=== PATIENT | female | born 1930 | race Caucasian/White ===

== ENCOUNTER → 2017-07-30 | Outpatient (CLI) | payer OTHER ==
[2017-07-30 11:06] LABS: BASO % 0.8 %; BASO ABS # 0.03 K/uL (0-0.2); EOS % 4.9 %; EOS ABS # 0.19 K/uL (0-0.5); HEMATOCRIT 39.7 % (37-47); IG# 0.01 K/uL (0.00-0.02); LYMPH % 19.5 %; LYMPH ABS # 0.76 K/uL (1.2-3.4); MEAN CELL VOLUME 94.5 fL (80-100); MEAN CORPUSCULAR HGB CONC 32.7 g/dl (32-36); MEAN PLATELET VOLUME 9.2 fL (7.4-10.4); MONO % 11.8 %; MONO ABS # 0.46 K/uL (0.11-0.59); NEUT % 62.7 %; NEUT ABS # 2.45 K/uL (1.4-6.5); PLATELET COUNT 190 K/uL (130-400); RED CELL DISTRIBUTION WIDTH CV 13.3 % (11.5-14.5); RED CELL DISTRIBUTION WIDTH SD 46.1 fL (36.4-46.3)
[2017-07-30 11:32] LABS: ALBUMIN 3.8 gm/dl (3.4-5.0); ALT/SGPT 16 U/L (12-78); BLOOD UREA NITROGEN 16 mg/dl (7-18); CALCIUM 9.4 mg/dl (8.5-10.1); CARBON DIOXIDE 30 mmol/L (21-32); CHOLESTEROL 223 mg/dl (0-200); CREATININE 0.81 mg/dl (0.60-1.20); GLUCOSE 83 mg/dl (70-99); LIPASE 163 U/L (73-393); POTASSIUM 4.2 mmol/L (3.5-5.1); SODIUM 138 mmol/L (136-145)
[2017-07-30 11:43] LABS: ALKALINE PHOSPHATASE 62 U/L (45-117); AST/SGOT 16 U/L (15-37); LDL CHOLESTEROL CALCULATED 142 mg/dl
== END | disposition home or self-care (01) ==
LOC: C.LABBC 08:54
PROVIDERS: ATTEND Nurse Practitioner Adult Health
DX: E03.9 Hypothyroidism, unspecified (principal); M81.0 Age-related osteoporosis without current pathological fracture; E78.5 Hyperlipidemia, unspecified; R10.11 Right upper quadrant pain

== ENCOUNTER 2021-05-25 11:15 | Observation (INO) ==
--- NOTE | 2021-05-25 11:25 | Emergency Department Note ---
History of Present Illness General Chief complaint: Fall Stated complaint: FALL, L HIP PAIN History of Present Illness 89-year-old female presents to the ED with a chief complaint of a fall. The patient was brought in by ambulance. She states that she slipped on the ice and fell onto her left hip and buttock area. She states that she has a significant mount of pain with trying to bear weight. She also has pain with certain movements. There is no shortening or rotation of the leg. Denies striking her head or loss of consciousness. Denies any other areas of pain such as her back, neck, chest abdomen or other parts of the extremities. Home Medications Medication Instructions Recorded Confirmed Type cholecalciferol (vitamin D3) 50 2,000 units PO DAILY cap 01/15/19 03/15/21 History mcg (2,000 unit) capsule glucosamine 750 mg-MSM 60 1 tab PO DAILY tab 01/15/19 03/15/21 History mg-chondroit 150 mg-hyaluron ac 1 mg tablet guaifenesin 1,200 mg tablet, 1,200 mg PO ONCE PRN tab 01/20/19 03/15/21 History extended release 12 hr (Mucinex) loratadine 10 mg tablet (Claritin) 10 mg PO DAILY PRN 01/20/19 03/15/21 History ibuprofen 200 mg tablet 400 mg PO DAILY PRN tab 10/01/19 03/15/21 History levothyroxine 50 mcg tablet 50 mcg PO DAILY #90 tab 08/25/20 03/15/21 Rx Allergies Allergy/AdvReac Type Severity Reaction Status Date / Time bacitracin AdvReac RASH Verified 03/15/21 09:55 [From Neosporin ([id number])] neomycin AdvReac Rash Verified 03/15/21 09:55 [From Neosporin ([id number])] polymyxin B AdvReac RASH Verified 03/15/21 09:55 [From Neosporin ([id number])] Past Med/Surg History Medical History Allergic rhinitis Arthritis Bilateral primary osteoarthritis of knee Hyperlipidemia Hypothyroidism Mitral valve disorder Osteoporosis Psoriasis Surgical History H/O: hysterectomy Family History Father Stroke Other Heart disease Denies family history of Ovarian cancer Prostate cancer Myocardial infarction Breast cancer Colorectal cancer Social History Smoking Status: Never smoker Second Hand Exposure: No; Hx Alcohol Use: Yes (glass of wine once a month) Alcohol type: wine Alcohol Intake Frequency: Monthly or Less Hx Substance Use: No Preferred Language: Micronesian Visual Impairment: Limited Hearing Ability: Hard of Hearing Patient Services Coordinator Required: No marital status: / Current Living Situation: Family current occupational status: retired How many Children do You have: 0 Feels Safe at Home: Yes Childhood Exposure to Second-Hand Smoke: No caffeine: Yes Dental Care, Regularly: Yes Physical Activity Frequency: Does not Exercise Seatbelt Use: always Sunscreen Use: No Review of Systems A total of 10 systems reviewed and were otherwise negative Physical Exam Vital Signs Vital Signs - 24 hr 05/25/21 11:26 Temperature 36.8 C Temperature Source Oral Pulse Rate 71 Respiratory Rate 15 Respiratory Effort / Characteristics Non-Labored Respiratory Depth Normal Blood Pressure 149/98 H Blood Pressure Mean 115 Pulse Oximetry 95 Oxygen Delivery Method Room Air Sepsis Recent Fever Within 48 Hours No Sepsis New/Unexplained Change in Mental Status No Sepsis Action Taken by Nursing No Action Required CONSTITUTIONAL/VITAL SIGNS: Reviewed / noted above. GENERAL: Non-toxic in appearance. INTEGUMENTARY: Warm, dry, and [place]. HEAD: Normocephalic. EYES: without scleral icterus or trauma. ENT/OROPHARYNX: clear and moist. LYMPHADENOPATHY/NECK: Is supple without lymphadenopathy or meningismus. RESPIRATORY: Clear to auscultation bilaterally. No increased work of breathing. CARDIOVASCULAR: Regular rate and rhythm. GI/ABDOMEN: Soft and nontender. No organomegaly or pulsatile mass. EXTREMITIES: Warm and well perfused. The patient has discomfort in the left buttock area with movement. There is no external or internal rotation. No shortening. Good distal pulses. BACK: No CVA tenderness. NEUROLOGICAL: Intact without focal deficits. PSYCHIATRIC: normal affect. MUSCULOSKELETAL: Normally developed with good muscle tone. TRIAGE NURSING DOCUMENTATION REVIEWED. Course Administered Medications Discontinued Medications Ioversol (Optiray 320 100ml) 95 ml IV ONCE ONE Stop: 05/25/21 13:37 Last Admin: 05/25/21 13:36 Dose: 95 ml Documented by: [id number] Morphine Sulfate (Morphine Sulfate 2 Mg/Ml Carp) 2 mg IV NOW STA Stop: 05/25/21 13:13 Last Admin: 05/25/21 13:28 Dose: 2 mg Documented by: [id number] Medical Decision Making Differential Diagnosis Fracture, subluxation, dislocation, contusion, ligamentous injury, neurovascular, compartment syndrome, rhabdomyolysis, as well as other pathologies. Medical Records Attestation: I reviewed the patient's medical records. Home Medications Current Medication List: was personally reviewed by me Laboratory Data Lab Results 05/25/21 Range/Units 12:39 POC Hgb 12.2 (12.0-16.0) g/dl POC Hct 36 L (37-47) % POC Sodium 140 (135-144) mmol/L POC Potassium 4.0 (3.3-5.0) mmol/L POC Chloride 101 (101-112) mmol/L POC Total CO2 28 (24-31) mmol/L POC Anion Gap 16.0 (16-25) mmol/L POC BUN 10 (7-18) mg/dl POC Creatinine 0.8 (0.6-1.3) mg/dl POC Glucose (other) 95 (70-99) mg/dl POC Ioniz Calcium Shahbaz 1.33 H (1.12-1.32) mmol/l Imaging Data Radiologist's Impression: Hip/Pelvis X-Ray 05/25/21 11:22 XR hip LT 2V w pelvis CLINICAL HISTORY: fall, pain left buttock area TECHNIQUE: 2 views of the left hip and single frontal view of the pelvis were obtained. Comparison: None available at the time of this dictation. FINDINGS: There is no evidence of an acute fracture. The alignment is anatomic. Degenerative changes are seen in the hip joint. Vascular calcifications are noted. IMPRESSION: Degenerative changes without evidence of acute abnormality. ACT 112: Negative or not required by law. Electronically signed by: Vinod Calles M.D. 05/25/2021 12:[address] 05/25/21 12:06 CT pelvis w/IV con only CLINICAL HISTORY: left sup/inf pubic ramus fx TECHNIQUE: Helical axial images of the pelvis were obtained and displayed at 5 and 1 mm intervals. Automated dose lowering techniques and/or adjustment according to patient size were utilized for this exam. This exam was performed with intravenous contrast. COMPARISON: None available at the time of this dictation. FINDINGS: Bladder: Unremarkable. Reproductive organs: Unremarkable. Bowel: Diverticulosis is seen without evidence of diverticulitis. Lymph nodes Mesenteric: Unremarkable. Pelvic: Unremarkable. Peritoneum: Normal Vessels: Atherosclerotic calcifications are seen. Abdominal wall: A tiny umbilical helical hernia is seen. Bones: Comminuted fractures of the superior left pubic ramus and minimally displaced fracture of the left inferior pubic ramus. IMPRESSION: Fractures of the left superior-inferior pubic ramus. ACT 112: Negative or not required by law. Electronically signed by: Vinod Calles M.D. 05/25/2021 2:01 PM MDM Narrative 89-year-old female presents with complaint of left buttock pain after a fall. The patient CT scan shows a left superior and inferior pubic ramus fracture. Because the patient has significant difficulty with moving the leg at all, she will require further inpatient evaluation and care and placement for rehab. I did speak with the hospitalist about this. The patient was treated with IV morphine. Impression & Plan Fracture of left inferior pubic ramus, Closed fracture of left superior pubic ramus, Fall Discharge Plan Visit Data Chief Complaint: Fall Stated Complaint: FALL, L HIP PAIN ED Provider: Omar Pereira Discharge Problem: Fracture of left inferior pubic ramus, Closed fracture of left superior pubic ramus, Fall Patient Disposition: Being Evaluated by Hospitalist Forms Stand Alone Forms: [facility], Virtual Emergency Department, Important Visit Information Prescriptions Prescriptions: No Action levothyroxine 50 mcg tablet 50 mcg PO DAILY Qty: 90 RF: 3 eorlscgj-BHI-yabgx-hyaluron ac [id number] mg tablet 1 tab PO DAILY RF: 0 cholecalciferol (vitamin D3) 2,000 unit capsule 2,000 units PO DAILY RF: 0 loratadine [Claritin] 10 mg tablet 10 mg PO DAILY PRNRF: 0 guaifenesin [Mucinex] 1,200 mg tablet extended release 12hr 1,200 mg PO ONCE PRNRF: 0 ibuprofen 200 mg tablet 400 mg PO DAILY PRN (Reason: fever or pain) RF: 0 Referrals Referrals: Jose Posada, [Primary Care Provider] - Discharge Problem: Fracture of left inferior pubic ramus Qualifiers: Encounter type: initial encounter Fracture type: closed Qualified Code(s): S32.592A - Other specified fracture of left pubis, initial encounter for closed fracture Closed fracture of left superior pubic ramus Qualifiers: Encounter type: initial encounter Qualified Code(s): S32.512A - Fracture of superior rim of left pubis, initial encounter for closed fracture
--- NOTE | 2021-05-25 12:15 | XRay Report ---
XR hip LT 2V w pelvis CLINICAL HISTORY: fall, pain left buttock area TECHNIQUE: 2 views of the left hip and single frontal view of the pelvis were obtained. Comparison: None available at the time of this dictation. FINDINGS: There is no evidence of an acute fracture. The alignment is anatomic. Degenerative changes are seen i n the hip joint. Vascular calcifications are noted. IMPRESSION: Degenerative changes without evidence of acute abnormality. ACT 112: Negative or not required by law. Electronically signed by: Vinod Calles M.D. 05/25/2021 12:13 PM
[2021-05-25 12:51] LABS: iSTAT Creatinine 0.8 mg/dl (0.6-1.3); iSTAT Hemoglobin 12.2 g/dl (12.0-16.0); iSTAT Ionized Calcium 1.33 mmol/l (1.12-1.32)
[2021-05-25] MEDS ORDERED: MoRPHine SULFATE 2 MG/ML CARP IV STA ×2 (13:12→15:51)
[2021-05-25] MEDS ORDERED: OPTIRAY 320 100ml IV ONE (13:36)
--- NOTE | 2021-05-25 14:02 | CT Scan Report ---
CT pelvis w/IV con only CLINICAL HISTORY: left sup/inf pubic ramus fx TECHNIQUE: Helical axial images of the pelvis were obtained and displayed at 5 and 1 mm intervals. Au tomated dose lowering techniques and/or adjustment according to patient size were utilized for this e xam. This exam was performed with intravenous contrast. COMPARISON: None available at the time of this dictation. FINDINGS: Bladder: Unremarkable. Reproductive organs: Unremarkable. Bowel: Diverticulosis is seen without evidence of diverticulitis. Lymph nodes Mesenteric: Unremarkable. Pelvic: Unremarkable. Peritoneum: Normal Vessels: Atherosclerotic calcifications are seen. Abdominal wall: A tiny umbilical helical hernia is seen. Bones: Comminuted fractures of the superior left pubic ramus and minimally displaced fracture of the left inferior pubic ramus. IMPRESSION: Fractures of the left superior-inferior pubic ramus. ACT 112: Negative or not required by law. Electronically signed by: Vinod Calles M.D. 05/25/2021 2:01 PM
--- NOTE | 2021-05-25 14:34 | History & Physical Report ---
Date of Service May 25, 2021 Assessment & Plan (1) Fracture of left inferior pubic ramus: Plan: Mechanical fall in a 89 yo female with above diagnosis Patient will be admitted for pain control. Consult PT/OT Patient will likely benefir from acute rehab given how she is normally active and is able to ambulate without a walker. Patient will be on pain medicine: acetaminophen/ NSAID. This is nonsurgical. May curbside Dr. Phan for any further recommendations. (2) Closed fracture of left superior pubic ramus: Plan: as above (3) Fall: Plan: s/p fall as stated above (4) Hypothyroidism: Plan: resume home meds History of Present Illness Chief Complaint: fall Primary Care Provider: Jose Posada DO Patient is 89 yo female who sustained a mechanical fall while slipping on ice. She fell on the lateral side of her left pelvis. Patient was in a significant amount of pain and was unable to ambulate or bear weight. She denies hitting her head or having loss of consciousness. Allergies Allergy/AdvReac Type Severity Reaction Status Date / Time bacitracin AdvReac RASH Verified 05/25/21 14:34 [From Neosporin ([id number])] neomycin AdvReac Rash Verified 05/25/21 14:34 [From Neosporin ([id number])] polymyxin B AdvReac RASH Verified 05/25/21 14:34 [From Neosporin ([id number])] Home Medications Medication Instructions Recorded Confirmed Type cholecalciferol (vitamin D3) 50 2,000 units PO QAM cap 01/15/19 05/25/21 History mcg (2,000 unit) capsule glucosamine 750 mg-MSM 60 1 tab PO QAM tab 01/15/19 05/25/21 History mg-chondroit 150 mg-hyaluron ac 1 mg tablet guaifenesin 1,200 mg tablet, 1,200 mg PO ONCE PRN tab 01/20/19 05/25/21 History extended release 12 hr (Mucinex) loratadine 10 mg tablet (Claritin) 10 mg PO DAILY PRN 01/20/19 05/25/21 History ibuprofen 200 mg tablet 400 mg PO DAILY PRN tab 10/01/19 05/25/21 History levothyroxine 50 mcg tablet 50 mcg PO DAILY #90 tab 08/25/20 05/25/21 Rx Past Med/Surg History Medical History Allergic rhinitis Arthritis Bilateral primary osteoarthritis of knee Hyperlipidemia Hypothyroidism Mitral valve disorder Osteoporosis Psoriasis Surgical History H/O: hysterectomy Family History Father Stroke Other Heart disease Denies family history of Ovarian cancer Prostate cancer Myocardial infarction Breast cancer Colorectal cancer Social History Smoking Status: Never smoker Second Hand Exposure: No; Do You Dip or Chew Tobacco: No; Tobacco Cessation Education Requested by Patient: No Hx Alcohol Use: Yes Alcohol type: wine Alcohol Intake Frequency: Monthly or Less Hx Substance Use: No Preferred Language: Hungarian Communication Ability: Effective Visual Impairment: Limited Hearing Ability: Hard of Hearing Bookkeeping Assistant Required: No Beliefs That Will Affect Care: None marital status: Single Current Living Situation: Family current occupational status: retired How many Children do You have: 0 Other Information That Helps Us Care for You: No Feels Safe at Home: Yes Safety Concerns: Feels Safe At This Time Childhood Exposure to Second-Hand Smoke: No caffeine: Yes Dental Care, Regularly: Yes Physical Activity Frequency: Does not Exercise Seatbelt Use: always Sunscreen Use: No Assistive Devices: Cane, Glasses and Walker Assistive Devices Comment: Glasses for reading. Review of Systems Review of Systems: All systems reviewed & are unremarkable except as noted in HPI & below Physical Exam Constitutional: WD/WN, vitals as above Eyes: PERRL, conjunctivae normal, anicteric sclerae ENMT: external ear and nose normal, oropharynx normal Neck: trachea midline, no thyromegaly Respiratory: normal respiratory effort, lungs clear to auscultation Cardiovascular: RRR, no murmur, no edema Gastrointestinal (Abdomen): normal bowel sounds, soft, nontender, no hepatosplenomegaly Skin: no rashes, warm and dry Psychiatric: A+Ox3, euthymic affect Lymphatic: no cervical or axillary lymphadenopathy Results & Data Results & Data ([facility]) Vital Signs (Past 12 Hours) Vital Signs Temp Pulse Pulse Resp BP BP Pulse Ox 05/25/21 13:13 61 15 167/85 H 95 05/25/21 11:26 36.8 C 71 15 149/98 H 95 PG Care Time/CCT Total # of Minutes Spent Total Time Spent with Patient: Total time spent is greater than 50% in coordination of care (as documented) at patient's floor/unit and/or counseling patient: Coding Level of Care Code 35916 Initial Inpt Care Lvl 3 Diagnoses Fracture of left inferior pubic ramus S32.592A Encounter type: initial encounter Fracture type: closed Closed fracture of left superior pubic ramus S32.512A Encounter type: initial encounter Fall W19.XXXA Hypothyroidism E03.9 (1) Fracture of left inferior pubic ramus Encounter type: initial encounter Fracture type: closed Qualified Code(s): S32.592A - Other specified fracture of left pubis, initial encounter for closed fracture (2) Closed fracture of left superior pubic ramus Encounter type: initial encounter Qualified Code(s): S32.512A - Fracture of superior rim of left pubis, initial encounter for closed fracture
[2021-05-25] MEDS ORDERED: ACETAMINOPHEN 325 MG TAB PO PRN (16:39)
[2021-05-25] MEDS ORDERED: guaiFENesin 600 MG TABCR PO PRN (17:08)
[2021-05-25] MEDS: ACETAMINOPHEN 325 MG TAB PO SCH (17:34)
[2021-05-25] MEDS: DOCUSATE SODIUM/SENNA 50/8.6MG TAB PO SCH (17:35)
[2021-05-25] MEDS: IBUPROFEN 200 MG TAB PO SCH ×2 (19:00→22:38)
[2021-05-25] MEDS: ENOXAPARIN INJ 40 MG/0.4 ML SYR SQ SCH (22:39)
[2021-05-26] MEDS: ACETAMINOPHEN 325 MG TAB PO SCH ×5 (02:23→23:53)
[2021-05-26] MEDS: LEVOTHYROXINE SODIUM 50 MCG TABLET PO SCH (05:23)
[2021-05-26] MEDS: DOCUSATE SODIUM/SENNA 50/8.6MG TAB PO SCH (07:34)
[2021-05-26] MEDS: POLYETHYLENE (MIRALAX) 17 GM PACK PO SCH (07:35)
[2021-05-26] MEDS: CHOLECALCIFEROL 1,000 UNITS 25 MCG TAB PO SCH (07:35)
[2021-05-26] MEDS: IBUPROFEN 200 MG TAB PO SCH ×4 (07:36→20:57)
--- NOTE | 2021-05-26 08:39 | Hospitalist Progress Note ---
Date of Service May 26, 2021 Assessment & Plan (1) Fracture of left inferior pubic ramus: Plan: Mechanical fall in a 89 yo female with above diagnosis Pt prefers ibuprofen to tylenol and prn opiates for pain control. Consult PT/OT Patient will likely benefit from rehab given how she is normally active and is able to ambulate without a walker. (2) Closed fracture of left superior pubic ramus: (3) Fall: (4) Hypothyroidism: Plan: synthroid 50 mcg, last tsh was 2019, will recheck in am Admission and Anticipated Discharge Date Admission Date: May 25, 2021 Subjective Patient has reasonable control of her pain worse with changes in position. Obviously she will need likely subacute rehab for therapy while she recovers from her pelvic fracture Review of Systems Review of Systems: Mild distress and fatigue no headache, no visual changes no speech or swallowing issues no chest pain, pressure or palpitations no shortness of breath, cough or wheezes no abdominal pain, nausea or vomiting, diarrhea or constipation no dysuria, hematuria or frequency no focal joint pain or swelling left sided pelvic pain with movement no bruising, bleeding or rashes no focal signs of weakness or numbness or altered sensation no complaints of anxiety or depression.. Physical Exam Physical Exam: The patient appeared well nourished and normally developed. Vital signs as documented. Head exam is normocephalic atraumatic Neck is without JVD, thyromegaly, or carotid bruits. Lungs are clear to auscultation, no focal loss of breath sounds Cardiac exam, Rhythm is regular.. No murmurs, rubs or gallops. Abdominal exam reveals normal bowel sounds, soft non tender, no masses Extremities are nonedematous and both pedal pulses are present she has reproducable left sided pain with movement Neurologic exam is alert and oriented, no focal loss of strength or sensation Skin is without bruises or rashes Psychologically is without concerns for anxiety or depression.. Results & Data Results & Data ([facility]) Vital Signs (Past 12 Hours) Vital Signs Temp Pulse Pulse Resp BP BP Pulse Ox 05/26/21 07:11 98.1 F 63 16 146/82 H 93 05/25/21 22:10 97.9 F 63 14 174/73 H 93 05/25/21 21:39 63 14 148/71 H 95 05/25/21 21:00 67 13 151/73 H 94 PG Care Time/CCT Total # of Minutes Spent Total Time Spent with Patient: Total time spent is greater than 50% in coordination of care (as documented) at patient's floor/unit and/or counseling patient: Coding Level of Care Code 50225 Subseq Hosp Care Lvl 1 Diagnoses Fracture of left inferior pubic ramus S32.592A Encounter type: initial encounter Fracture type: closed Closed fracture of left superior pubic ramus S32.512A Encounter type: initial encounter Fall W19.XXXA Hypothyroidism E03.9 (1) Fracture of left inferior pubic ramus Encounter type: initial encounter Fracture type: closed Qualified Code(s): S32.592A - Other specified fracture of left pubis, initial encounter for closed fracture (2) Closed fracture of left superior pubic ramus Encounter type: initial encounter Qualified Code(s): S32.512A - Fracture of superior rim of left pubis, initial encounter for closed fracture
[2021-05-26] MEDS: ENOXAPARIN INJ 40 MG/0.4 ML SYR SQ SCH (20:56)
[2021-05-27] MEDS: oxyCODONE HCL IR 5 MG TAB (IMMEDIATE RELEASE) PO PRN (01:55)
[2021-05-27] MEDS: LEVOTHYROXINE SODIUM 50 MCG TABLET PO SCH (05:42)
[2021-05-27] MEDS: ACETAMINOPHEN 325 MG TAB PO SCH ×4 (05:42→22:56)
[2021-05-27] MEDS: DOCUSATE SODIUM/SENNA 50/8.6MG TAB PO SCH (07:25)
[2021-05-27] MEDS: POLYETHYLENE (MIRALAX) 17 GM PACK PO SCH (07:25)
[2021-05-27] MEDS: IBUPROFEN 200 MG TAB PO SCH ×4 (07:29→21:19)
[2021-05-27] MEDS: CHOLECALCIFEROL 1,000 UNITS 25 MCG TAB PO SCH (07:30)
--- NOTE | 2021-05-27 17:57 | Hospitalist Progress Note ---
Date of Service May 27, 2021 Assessment & Plan (1) Fracture of left inferior pubic ramus: Plan: Mechanical fall, left inferior pubic ramus fracture Nonsurgical management Pending rehab, patient is agreeable to this Continue Tylenol Pending placement at this time, clinically stable Pain adequately controlled today (2) Closed fracture of left superior pubic ramus: (3) Fall: (4) Hyperlipidemia: Plan: resume home meds (5) Hypothyroidism: Plan: resume home meds Plan: DVT prophylaxis: Lovenox Diet: Regular CODE STATUS: DNR/DNI Disposition: Pending rehab Admission and Anticipated Discharge Date Admission Date: May 25, 2021 Subjective Seen at bedside. No pain at rest. Does have left-sided hip pain with ambulation, but is able to ambulate okay with a walker. She notes that she lives on a single floor home, but does have carpets and is concerned about ambulating at home with a walker. He is agreeable to rehab, is pending placement. No chest pain, chest pressure, shortness of breath, difficulty breathing, fever, chills, abdominal pain today. No additional questions or concerns at time of bedside visit. Review of Systems Review of Systems: All systems reviewed & are unremarkable except as noted in Subjective Physical Exam Physical Exam: General: A&Ox3. NAD. Cooperative. HEENT: Atraumatic, normocephalic. Vision and hearing grossly intact. Pulm: Moderate to good air movement, no overt wheezes/rales. Symmetrical chest rise. No increase in work of breathing. No respiratory distress. Cardiac: RRR, -mrg. Radial pulses intact and symmetrical. Abdominal: Nontender, nondistended, soft. BS present. Extremities: Moves all extremities equally. Sensation to soft touch intact in hands and feet. 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 Hip flexion intact and symmetrical bilaterally, some pain on left resisted hip flexion. Radial pulse and PT pulse intact bilaterally. Results & Data Results & Data ([facility]) Vital Signs (Past 12 Hours) Vital Signs Temp Pulse Resp BP BP Pulse Ox 05/27/21 15:30 36.7 C 66 16 153/73 H 93 05/27/21 07:30 36.7 C 72 18 145/74 H 92 PG Care Time/CCT Total # of Minutes Spent Total Time Spent with Patient: Total time spent is greater than 50% in coordination of care (as documented) at patient's floor/unit and/or counseling patient: Coding Level of Care Code 55227 Subseq Hosp Care Lvl 1 Diagnoses Fracture of left inferior pubic ramus S32.592A Encounter type: initial encounter Fracture type: closed Closed fracture of left superior pubic ramus S32.512A Encounter type: initial encounter Fall W19.XXXA Hyperlipidemia E78.5 Hypothyroidism E03.9 (1) Fracture of left inferior pubic ramus Encounter type: initial encounter Fracture type: closed Qualified Code(s): S32.592A - Other specified fracture of left pubis, initial encounter for closed fracture (2) Closed fracture of left superior pubic ramus Encounter type: initial encounter Qualified Code(s): S32.512A - Fracture of superior rim of left pubis, initial encounter for closed fracture
[2021-05-27] MEDS: ENOXAPARIN INJ 40 MG/0.4 ML SYR SQ SCH (21:19)
[2021-05-28] MEDS: oxyCODONE HCL IR 5 MG TAB (IMMEDIATE RELEASE) PO PRN (04:40)
[2021-05-28] MEDS: LEVOTHYROXINE SODIUM 50 MCG TABLET PO SCH (05:09)
[2021-05-28] MEDS: ACETAMINOPHEN 325 MG TAB PO SCH ×4 (05:09→23:52)
[2021-05-28] MEDS: CHOLECALCIFEROL 1,000 UNITS 25 MCG TAB PO SCH (08:19)
[2021-05-28] MEDS: POLYETHYLENE (MIRALAX) 17 GM PACK PO SCH (08:20)
[2021-05-28] MEDS: DOCUSATE SODIUM/SENNA 50/8.6MG TAB PO SCH (08:20)
[2021-05-28] MEDS: IBUPROFEN 200 MG TAB PO SCH ×4 (08:21→21:27)
--- NOTE | 2021-05-28 17:45 | Hospitalist Progress Note ---
Date of Service May 28, 2021 Assessment & Plan (1) Fracture of left inferior pubic ramus: Plan: Admitting CT:Fractures of the left superior-inferior pubic ramus. -Pain control adequate at this time -Continue working with PT OT, pending discharge to rehab -Continue Tylenol as needed -Nonsurgical management -May curbside Dr. Phan for any further recommendations. -Labs every other day (2) Closed fracture of left superior pubic ramus: Plan: as above (3) Fall: Plan: s/p fall as stated above (4) Hypothyroidism: Plan: Continue home Synthroid Admission and Anticipated Discharge Date Admission Date: May 25, 2021 Subjective Ambulating to bathroom at time of visit. Doing well, continues to have some pain in hip with ambulation otherwise minimal pain and no new symptoms. No fever/chills/sweats. No chest pain. Awaiting dispo, no questions or concerns at time of visit. Review of Systems Review of Systems: All systems reviewed & are unremarkable except as noted in Subjective Physical Exam Physical Exam: General: A&Ox3. NAD. Cooperative. HEENT: Atraumatic, normocephalic. Vision and hearing grossly intact. Pulm: Symmetrical chest rise. No increase in work of breathing. No respiratory distress. Abdominal: Nontender, nondistended, soft. BS present. Extremities: Moves all extremities equally. Ambulating with walker to bathroom at time of visit, hip flexion and lower extremity strength grossly intact. Moving upper extremities equally and using walker well. Sensation in hands and feet intact. Results & Data Results & Data ([facility]) Vital Signs (Past 12 Hours) Vital Signs Temp Pulse Resp BP Pulse Ox 05/28/21 15:48 37.0 C 77 16 127/75 95 05/28/21 08:02 36.4 C L 61 16 143/77 H 94 PG Care Time/CCT Total # of Minutes Spent Total Time Spent with Patient: Total time spent is greater than 50% in coordination of care (as documented) at patient's floor/unit and/or counseling patient: Coding Level of Care Code 43712 Subseq Hosp Care Lvl 1 Diagnoses Fracture of left inferior pubic ramus S32.592A Encounter type: initial encounter Fracture type: closed Closed fracture of left superior pubic ramus S32.512A Encounter type: initial encounter Fall W19.XXXA Hypothyroidism E03.9 (1) Fracture of left inferior pubic ramus Encounter type: initial encounter Fracture type: closed Qualified Code(s): S32.592A - Other specified fracture of left pubis, initial encounter for closed fracture (2) Closed fracture of left superior pubic ramus Encounter type: initial encounter Qualified Code(s): S32.512A - Fracture of superior rim of left pubis, initial encounter for closed fracture
[2021-05-28] MEDS: ENOXAPARIN INJ 40 MG/0.4 ML SYR SQ SCH (21:24)
[2021-05-29] MEDS: LEVOTHYROXINE SODIUM 50 MCG TABLET PO SCH (05:30)
[2021-05-29] MEDS: oxyCODONE HCL IR 5 MG TAB (IMMEDIATE RELEASE) PO PRN (05:30)
[2021-05-29] MEDS: ACETAMINOPHEN 325 MG TAB PO SCH ×4 (05:30→23:50)
[2021-05-29 06:34] LABS: Basophils # (auto) 0.01 K/uL (0-0.2); Basophils % (auto) 0.2 %; Eosinophils % (auto) 4.4 %; Hematocrit (blood only) 32.2 % (37-47); Hemoglobin 10.3 g/dL (12.0-16.0); Lymphocytes # (auto) 0.53 K/uL (1.2-3.4); Lymphocytes % (auto) 11.8 %; Mean Corpuscular Hemoglobin 30.7 pg (25-34); Mean Corpuscular Volume 95.8 fL (80-100); Mean Platelet Volume 9.4 fL (7.4-10.4); Monocytes # (auto) 0.61 K/uL (0.11-0.59); Monocytes % (auto) 13.5 %; Neutrophils # (auto) 3.16 K/uL (1.4-6.5); Neutrophils % (auto) 70.1 %; Platelet Count 178 K/uL (130-400); RDW Coefficient of Variation 13.5 % (11.5-14.5); RDW Standard Deviation 47.1 fL (36.4-46.3); Red Blood Count 3.36 M/uL (4.2-5.4); White Blood Count 4.51 K/uL (4.8-10.8)
[2021-05-29 07:05] LABS: BUN Creatinine Ratio 17.2 (10-20); Calcium 9.2 mg/dl (8.5-10.1); Creatinine Clr Calc Pharmacy 53.9 ml/min; Est GFR (African American) 91.7 ml/min; Est GFR (Non-African American) 79.1 ml/min; Potassium 3.8 mmol/L (3.5-5.1)
[2021-05-29] MEDS: POLYETHYLENE (MIRALAX) 17 GM PACK PO SCH (08:15)
[2021-05-29] MEDS: DOCUSATE SODIUM/SENNA 50/8.6MG TAB PO SCH (08:15)
[2021-05-29] MEDS: CHOLECALCIFEROL 1,000 UNITS 25 MCG TAB PO SCH (08:16)
[2021-05-29] MEDS: IBUPROFEN 200 MG TAB PO SCH ×4 (08:16→20:18)
--- NOTE | 2021-05-29 17:23 | Hospitalist Progress Note ---
Date of Service May 29, 2021 Assessment & Plan (1) Fracture of left inferior pubic ramus: Plan: Patient admitted for left inferior pubic ramus fracture - CT: Comminuted fractures of the superior left pubic ramus and minimally displaced fracture of the left inferior pubic ramus. Nonoperative management Pain adequately controlled at this time with Tylenol, no pain at rest, some pain with ambulation but tolerable Seen by PT/OT Pending placement with rehab. Case management on board. Samantha possibly able to offer a bed tomorrow. Neurovascularly intact - Hgb 10.3 today, no signs of bleeding on exam, hemodynamically stable. Trend. No leukocytosis, no electrolyte derangements, kidney function remains normal with normal creatinine May curbside Dr. Phan for any further recommendations. - Attempted to update family by phone 05/29, (2) Closed fracture of left superior pubic ramus: Plan: as above (3) Fall: Plan: s/p fall as stated above (4) Hypothyroidism: Plan: resume home meds Admission and Anticipated Discharge Date Admission Date: May 25, 2021 Subjective Seen at bedside today. Patient reports her pain continues to improve, and she has no pain at all at rest. She reports she does have pain with ambulation, lessen with standing still, and thinks it is improved with Tylenol. No numbness/tingling in her extremities. No fever, chills, sweats, difficulty breathing, lightheadedness, dizziness, falls. Has been able to ambulate with assistance to the bathroom with a walker okay and tolerable pain. Aware is pending placement, and is very worried about her strength and looking forward to rehab. Otherwise no questions or concerns at bedside assessment. Review of Systems Review of Systems: All systems reviewed & are unremarkable except as noted in Subjective Physical Exam Physical Exam: General: A&Ox3. NAD. Cooperative. HEENT: Atraumatic, normocephalic. Vision and hearing grossly intact. Cardiac: RRR, -MRG Pulm: CTA B, without wheezes/rales symmetrical chest rise. No increase in work of breathing. No respiratory distress. Abdominal: Nontender, nondistended, soft. BS present. Extremities: Moves all extremities equally. 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 Sensation in hands and feet intact. Results & Data Results & Data ([facility]) Vital Signs (Past 12 Hours) Vital Signs Temp Pulse Resp BP Pulse Ox 05/29/21 15:54 36.7 C 83 16 127/66 94 05/29/21 07:16 36.6 C 72 16 130/83 94 PG Care Time/CCT Total # of Minutes Spent Total Time Spent with Patient: Total time spent is greater than 50% in coordination of care (as documented) at patient's floor/unit and/or counseling patient: Coding Level of Care Code 01063 Subseq Hosp Care Lvl 2 Diagnoses Fracture of left inferior pubic ramus S32.592A Encounter type: initial encounter Fracture type: closed Closed fracture of left superior pubic ramus S32.512A Encounter type: initial encounter Fall W19.XXXA Hypothyroidism E03.9 (1) Fracture of left inferior pubic ramus Encounter type: initial encounter Fracture type: closed Qualified Code(s): S32.592A - Other specified fracture of left pubis, initial encounter for closed fracture (2) Closed fracture of left superior pubic ramus Encounter type: initial encounter Qualified Code(s): S32.512A - Fracture of superior rim of left pubis, initial encounter for closed fracture
[2021-05-29] MEDS: ENOXAPARIN INJ 40 MG/0.4 ML SYR SQ SCH (20:19)
[2021-05-30] MEDS: oxyCODONE HCL IR 5 MG TAB (IMMEDIATE RELEASE) PO PRN (01:02)
[2021-05-30] MEDS: ACETAMINOPHEN 325 MG TAB PO SCH ×2 (05:35→11:12)
[2021-05-30] MEDS: LEVOTHYROXINE SODIUM 50 MCG TABLET PO SCH (05:35)
[2021-05-30 06:23] LABS: Basophils # (auto) 0.02 K/uL (0-0.2); Basophils % (auto) 0.4 %; Eosinophils % (auto) 3.6 %; Hematocrit (blood only) 30.8 % (37-47); Hemoglobin 9.9 g/dL (12.0-16.0); Immature Granulocytes # (auto) 0.01 K/uL (0.00-0.02); Immature Granulocytes % (auto) 0.2 %; Lymphocytes # (auto) 0.84 K/uL (1.2-3.4); Mean Corpuscular Hemoglobin 30.5 pg (25-34); Mean Corpuscular Hgb Conc 32.1 g/dL (32-36); Mean Corpuscular Volume 94.8 fL (80-100); Mean Platelet Volume 9.2 fL (7.4-10.4); Monocytes # (auto) 0.33 K/uL (0.11-0.59); Monocytes % (auto) 5.9 %; Neutrophils # (auto) 4.19 K/uL (1.4-6.5); Neutrophils % (auto) 74.9 %; Platelet Count 174 K/uL (130-400); RDW Coefficient of Variation 13.3 % (11.5-14.5); RDW Standard Deviation 46.5 fL (36.4-46.3); Red Blood Count 3.25 M/uL (4.2-5.4); White Blood Count 5.59 K/uL (4.8-10.8)
[2021-05-30] MEDS: CHOLECALCIFEROL 1,000 UNITS 25 MCG TAB PO SCH (07:52)
[2021-05-30] MEDS: IBUPROFEN 200 MG TAB PO SCH ×2 (07:53→12:49)
[2021-05-30] MEDS: POLYETHYLENE (MIRALAX) 17 GM PACK PO SCH (07:53)
[2021-05-30] MEDS: DOCUSATE SODIUM/SENNA 50/8.6MG TAB PO SCH (07:53)
--- NOTE | 2021-05-30 17:19 | Discharge Summary ---
Date of Service May 30, 2021 Admission HPI Per Admitting Provider Patient is 89 yo female who sustained a mechanical fall while slipping on ice. She fell on the lateral side of her left pelvis. Patient was in a significant amount of pain and was unable to ambulate or bear weight. She denies hitting her head or having loss of consciousness. Admission Exam Per Admitting Provider Constitutional: WD/WN, vitals as above Eyes: PERRL, conjunctivae normal, anicteric sclerae ENMT: external ear and nose normal, oropharynx normal Neck: trachea midline, no thyromegaly Respiratory: normal respiratory effort, lungs clear to auscultation Cardiovascular: RRR, no murmur, no edema Gastrointestinal (Abdomen): normal bowel sounds, soft, nontender, no hepatosplenomegaly Skin: no rashes, warm and dry Psychiatric: A+Ox3, euthymic affect Lymphatic: no cervical or axillary lymphadenopathy Principal Diagnosis Left hip fracture Discharge Exam General: A&Ox3. NAD. Cooperative. HEENT: Atraumatic, normocephalic. Vision and hearing grossly intact. Cardiac: RRR, -MRG Pulm: CTAB, without wheezes/rales symmetrical chest rise. No increase in work of breathing. No respiratory distress. Abdominal: Nontender, nondistended, soft. BS present. Extremities: Moves all extremities equally. 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, ankle dorsiflexion/plantar flexion intact and symmetrical.ensation in hands and feet intact Discharge Data Allergies Allergy/AdvReac Type Severity Reaction Status Date / Time bacitracin AdvReac RASH Verified 05/25/21 14:34 [From Neosporin ([id number])] neomycin AdvReac Rash Verified 05/25/21 14:34 [From Neosporin ([id number])] polymyxin B AdvReac RASH Verified 05/25/21 14:34 [From Neosporin ([id number])] Consultations 05/25/21 14:13 ED Decision to Admit Stat Ordered Studies 05/25/21 12:06 CT pelvis w/IV con only Stat Hospital Course (1) Fracture of left inferior pubic ramus: Apoorva is an 89-year-old female with a history of hypothyroidism who sustained a fall and closed fracture of the left inferior pubic ramus minimally displaced not requiring operative intervention who did well is discharged for further care and rehab to SNF. To do as outpatient: 1. Placement and continued rehab, follow-up with PCP of closed hip fracture 2. Continued pain management for hip fracture 3. Repeat CBC to ensure stability within 1 week Patient admitted for left inferior pubic ramus fracture - CT: Comminuted fractures of the superior left pubic ramus and minimally displaced fracture of the left inferior pubic ramus. Nonoperative management Pain adequately controlled at d/c w Tylenol and NSAID, no pain at rest, some pain with ambulation but tolerable Seen by PT/OT Neurovascularly intact - Hgb decreased to 10.3 initially, no signs of bleeding on exam, hemodynamically stable. No leukocytosis, no electrolyte derangements, kidney function remained normal with normal creatinine Discharged to SNF for further care and rehab (2) Closed fracture of left superior pubic ramus: as above (3) Fall: s/p fall as stated above (4) Hypothyroidism: resume home meds Total Time Total Time Spent Total Time Spent (In Minutes): Time spend day of discharge 35 minutes including direct patient care, documentat ion, review of labs and images, and coordination of care. Discharge Plan Discharge Items Patient Disposition: Transfer Intermediate Fac Reason For Visit: FRACTURE OF LEFT INFERIOR PUBIC RAMUS Discharge Diagnosis: Pubic Ramus Fracture, LEFT Activity: Per Instructions section Non-emergency contact: Primary Care Provider Call non-emergency contact if: you have any medication questions, your symptoms worsen, your pain is not controlled and your pain is worsening Follow-up/Referrals: Jose Posada DO [Primary Care Provider] - Diet: Regular Addtl Attending Provider Instructions: You were seen for a fracture of your LEFT HIP (Comminuted fractures of the superior left pubic ramus and minimally displaced fracture of the left inferior pubic ramus.), which did not require surgery. You were ambulating well, and recommended for discharge to a fdc facility. You are being discharged to SNF care at [facility] and for additional rehab. Please take tylenol 500mg every 4-6 hours as needed and/or ibuprofen 400mg every 4-6 hours as needed for pain. You were not prescribed any antibiotics at this time. You may bear weight and walk with a walker as tolerated. Please continue to work with PT to build strength. Bones generally take 6-8 weeks to heal, although you should have progressive improvement in your symptoms and pain. Your blood counts decreased slightly, but remained stable at discharge. Please have your blood levels (CBC) checked by your primary care physician as an outpatient to ensure they remain stable/improve. Please seek medical evaluation immediately if you develop any signs of bleeding. A followup appointment is being scheduled for you with your PCP. You should be seen seen within 1-2 weeks. You should receive a call to confirm this appointment. If you do not receive a call within 48 hours to confirm this appointment, or need to change this appointment, please call the provider's office. If you develop any new or worsening symptoms including fever, chills, sweats, chest pain, chest pressure, difficulty breathing, uncontrolled nausea/vomiting, rash, wheezing, passing out or nearly passing out, bleeding, black/bloody bowel movements, or other new or concerning symptoms please call your primary care physician, or call 911 for re-evaluation in the emergency department if you are very concerned. Pending Studies at Discharge: No Stand-Alone Forms: My [facility] Skilled Items Patient informed of condition?: Yes DNR: Yes Discharge Level of Care: Skilled Communicable Disease: No Discharge Prognosis: Stable Lines: None Urinary Catheter: No Medications and DC Order Prescriptions: New ibuprofen 200 mg Tablet 400 mg PO QID PRN (Reason: pain) Qty: 60 RF: 0 Continued levothyroxine 50 mcg tablet 50 mcg PO DAILY Qty: 90 RF: 3 uumniktg-FFU-sghab-hyaluron ac 450-18-615-1 mg tablet 1 tab PO QAM RF: 0 cholecalciferol (vitamin D3) 2,000 unit capsule 2,000 units PO QAM RF: 0 loratadine [Claritin] 10 mg tablet 10 mg PO DAILY PRN (Reason: Allergy Symptoms) RF: 0 guaifenesin [Mucinex] 1,200 mg tablet extended release 12hr 1,200 mg PO ONCE PRN (Reason: Cough) RF: 0 ibuprofen 200 mg tablet 400 mg PO DAILY PRN (Reason: fever or pain) RF: 0 Discharge Orders: Discharge Order (Routine); Ordered 05/30/21 Ordered By: Fernandez Rodney Admission Data Admit Date/Time: 05/25/21 16:41 Attending Provider: Fernandez Rodney Admit Provider: Adrián Wheeler Primary Care Provider: Jose Posada Other Providers: Adrián Wheeler ; Francis Singh at [place] ; [place],[facility] Other Interventions: Discharge Summary Assessment (RN) Last Done: 05/30/21 13:41 Coding Level of Care Code D/C DAY MANAGEMENT >30 MINS Diagnoses Fracture of left inferior pubic ramus S32.592A Encounter type: initial encounter Fracture type: closed Closed fracture of left superior pubic ramus S32.512A Encounter type: initial encounter Fall W19.XXXA Hypothyroidism E03.9
== END 2021-05-30 14:14 ==
LOC: ED 11:15 → INTOOBSV 16:41 → SUATTDRO 16:41 → 3N 16:41